=== PATIENT | male | born 1955 | race Caucasian/White ===

== ENCOUNTER 2017-03-04 14:47 | Emergency (ER) | payer MEDICAID ==
--- NOTE | 2017-03-04 15:18 | ED Physician Chart ---
ED Chief Complaint/HPI - Patient Information Date Seen:: 03/04/17 Time Seen:: 15:11 Chief Complaint:: Neck pain, left shoulder pain History of Present Illness:: 61 yo male has neck pain, left shoulder pain for 2 years, worsened for 3 weeks. Took gabapentin bid and naproxen and occasionally norco. The patient also has diabetes and diabetic neuropathy. Metformin, insulin, benazpril, aspirin. Allergies:: Allergies Allergy/AdvReac Type Severity Reaction Status Date / Time No Known Allergies Allergy Verified 11/18/15 16:53 Vitals:: Vital Signs - 8 hr 03/04/17 15:04 Temp 98.2 F HR 105 RR 17 BP 132/84 O2 Sat % 98 ED Review of Systems - Review of Systems General/Constitutional: No fever, No chills Skin: No skin lesions Head: Headache Eyes: No loss of vision ENT: No earache Neck: Neck pain Cardio Vascular: No chest pain Pulmonary: No SOB ED Past Medical History - Past Medical History Past Medical History: HTN, DM Social History: Smoker, No Alcohol, No Drug Use Surgical History: other (cataract surgery on right eye) Family Medical History - Family Member Uncle History Unknown: Yes ED Physical Exam - Physical Examination General/Constitutional: Awake, Alert Head: Atraumatic Eyes: PERRL, EOMI Other Neck comments:: Tenderness on the posterior neck. 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 His DM II is poorly controlled. Critical Care Time: 50 min Excludes all billable procedures: Yes This condition life threatening/high prob of deterioration: No Assessment/Comments:: CBC, CMP, A1c C-spine X ray Toradol 30mg IM Follow up with PCP for DM control, possible c-spine MRI, physical therapy and pain management ED Septic Shock - . Is Septic Shock (SBP<90, OR Lactate>4 mmol\L) present?: No - <6hrs of presentation: Vital Signs: Vital Signs - 8 hr 03/04/17 15:04 Temp 98.2 F HR 105 RR 17 BP 132/84 O2 Sat % 98 ED Reassessment (Disposition) - Reassessment Reassessment Condition:: Improved - Aftercare/Follow up Instructions Aftercare/Follow-Up Instructions:: Counseled pt regarding lab results/diagnosis & need follow up, Refer to Discharge Instructions - Patient Disposition Discharge/Transfer:: Home ED Discharge Plan - Patient Disposition Admit/Discharge/Transfer: PT DISCHARGED HOME Condition at Disposition: Improved Instructions: Cervical Radiculopathy, Diets for Diabetes, Food Labeling
[2017-03-04 16:47] LABS: URINE BILIRUBIN NEGATIVE (NEGATIVE); URINE BLOOD NEGATIVE (NEGATIVE); URINE GLUCOSE (UA) >=1000 mg/dL (NEGATIVE); URINE KETONE NEGATIVE (NEGATIVE); URINE PROTEIN NEGATIVE (NEGATIVE); URINE UROBILINOGEN 0.2 E.U./dL (0.2 - 1.0)
[2017-03-04 16:52] LABS: URINE COLOR YELLOW; URINE EPITHELIAL CELLS OCCASIONAL /lpf (FEW); URINE RBC NONE SEEN /hpf (0-5); URINE WBC 0-2 /hpf (0-5)
[2017-03-04 16:53] LABS: URINE BACTERIA NONE SEEN /hpf (NONE SEEN)
[2017-03-04 16:55] LABS: AMPHETAMINE URINE NEGATIVE (NEGATIVE); BARBITURATES URINE NEGATIVE (NEGATIVE); METHADONE URINE NEGATIVE (NEGATIVE)
[2017-03-04 17:23] LABS: % BASOPHILS 1.4 % (0.0-2.0); % EOSINOPHILS 3.3 % (0.0-5.0); % LYMPHOCYTES 35.5 % (20.0-50.0); % MONOCYTES 8.1 % (2.0-10.0); % NEUTROPHILS 51.7 % (40.0-80.0); HEMOGLOBIN 16.9 gm/dL (12-16); MEAN CELL VOLUME 90.3 fl (80-99); MEAN CORPUSCULAR HEMOGLOBIN 30.5 pg (26.0-30.0); MEAN CORPUSCULAR HGB CONC 33.7 pg (28.0-36.0); NEUTROPHILE ABSOLUTE 5.2 Th/cmm (1.8-8.0); PLATELET COUNT 253 Th/cmm (150-400); RED BLOOD COUNT 5.54 Mil/cmm (4.30-5.70); RED CELL DISTRIBUTION WIDTH 13.3 % (11.5-20.0); WHITE BLOOD COUNT 9.9 Th/cmm (4.8-10.8)
[2017-03-04 17:37] LABS: ALB/GLOB RATIO 1.6 (1.0-1.8); ALKALINE PHOSPHATASE 54 U/L (34-104); BILIRUBIN,TOTAL 0.4 mg/dL (0.3-1.0); BUN - UREA NITROGEN 9 mg/dL (7-25); CALCIUM SERUM 9.6 mg/dL (8.6-10.3); CARBON DIOXIDE 22.9 mEq/L (21.0-31.0); CHLORIDE 104 mEq/L (98-107); CREATININE - SERUM 0.6 mg/dL (0.7-1.3); GLUCOSE 281 mg/dL (70-105); POTASSIUM SERUM 3.9 mEq/L (3.5-5.1); SGOT 10 U/L (13-39); SGPT/ALT 12 U/L (7-52); SODIUM SERUM 132 mEq/L (136-145)
--- NOTE | 2017-03-05 09:05 | Diagnostic Imaging Report ---
Cervical spine (5 views) HISTORY: Pain Alignment is normal. Degenerative changes with hypertrophic spur formation noted about the endplates of C5, C6, and C7. Narrowing of the C5-6 and C6-7 disc spaces. No acute abnormalities. No fractures. Hypertrophic bony changes result in neural foraminal encroachment at C5-6 and C6-7 bilaterally. The prevertebral soft tissues appear normal. IMPRESSION: 1. No acute abnormalities 2. Degenerative changes as detailed above.
--- NOTE | 2017-03-05 09:06 | Diagnostic Imaging Report ---
Cervical spine (2 views, flexion/extension) HISTORY: Pain Compared with the earlier exam, degenerative changes are again noted in the lower cervical spine. No displacement of vertebrae with flexion or extension. IMPRESSION: 1. Degenerative changes
== END 2017-03-04 18:07 | disposition home or self-care (01) ==
LOC: ER 14:47
DX: M50.30 Other cervical disc degeneration, unspecified cervical region (principal); M54.2 Cervicalgia; E11.9 Type 2 diabetes mellitus without complications; I10 Essential (primary) hypertension
CPT/HCPCS: 99291; 96372; 72052; 36415; 36416; 82948; 80307; 85025; 83036; 80053; 72050; 81001; J1885; Z7502